=== PATIENT | male | born 1950 | race Caucasian/White ===

== ENCOUNTER → 2016-05-12 | Outpatient (CLI) | payer MEDICARE ==
[~2016-05-12] MED LIST: LISI-519 PO; MELA5TAB15 PO; NAPR220T95 PO; SIMV40TA PO; TAMS0.4C4 PO
[2016-05-12 13:46] LABS: HEMATOCRIT 43.6 % (39.0-51.0); MEAN CELL VOLUME 88.2 FL (80.0-100.0); MEAN CORPUSCULAR HGB CONC 35.1 % (32.0-36.0); PLATELET COUNT 194 TH/MM3 (150-450); RED BLOOD COUNT 4.95 MIL/MM3 (4.50-5.90); RED CELL DISTRIBUTION WIDTH 13.8 % (11.6-17.2); REVIEW FLAG FINAL; WHITE BLOOD COUNT 5.3 TH/MM3 (4.0-11.0)
--- NOTE | 2016-05-13 20:22 | EKG ---
Date Performed: 05/12/2016 Time Performed: 13:39:35 PTAGE: 66 years EKG: Sinus rhythm POSSIBLE LEFT ATRIAL ENLARGEMENT BORDERLINE ECG NO PREVIOUS TRACING DOCTOR: Braulio Dow Interpretating Date/Time 05/13/2016 20:20:46
== END ==
LOC: CPRE 13:14
PROVIDERS: ATTEND Specialist
DX: Z01.810 Encounter for preprocedural cardiovascular examination (principal); Z01.812 Encounter for preprocedural laboratory examination; J32.9 Chronic sinusitis, unspecified; R94.31 Abnormal electrocardiogram [ECG] [EKG]
CPT/HCPCS: 36415; 85027; 93005

== ENCOUNTER → 2016-05-14 | Day surgery (SDC) | payer MEDICARE ==
--- NOTE | 2016-05-13 17:52 | MH ---
cc: BETSY PITTS M.D. DATE OF ADMISSION: 05/14/2016 ADMITTING DIAGNOSIS: HISTORY OF PRESENT ILLNESS: 66-year-old gentleman with chronic sinusitis for nasal obstruction, for nasal sinus surgery. PAST MEDICAL HISTORY Unremarkable. PAST SURGICAL HISTORY Unremarkable. REVIEW OF SYSTEMS, FAMILY HISTORY AND SOCIAL HISTORY Unremarkable. PHYSICAL EXAMINATION Well-appearing patient no acute distress noted. HEENT: Exam reveals septal deviation, turbinate hypertrophy, mucopurulent secretions. Lungs: Clear. Heart: Regular rate and rhythm. Abdomen: Soft, nontender. Extremities: Without clubbing, cyanosis or edema. Neurologic: Alert, oriented, nonfocal neurologic exam. IMPRESSION: Chronic sinusitis and nasal obstruction per nasal sinus surgery. The patient was instructed as to the method of surgery and possible complication, which includes anesthetic complications, cardiac difficulty, pulmonary difficulty, stroke, coma or even . Surgical complications of bleeding, infection, risk of injury to orbit including blindness and diplopia, risk of injury to brain including CSF leak, meningitis, brain abscess or even , decreased sense of smell, septal perforation. The patient appeared to agree, accept and understand the above-mentioned risks and benefits. There were no guarantees or warrantees regarding outcome were given. We will, therefore, proceed with surgery. Betsy Pitts MD [facility]/[place] /5:08 PM /5:42 PM [facility] CLINICPatricia
[~2016-05-14] VITALS: Ht 170.2 cm; Wt 77.5 kg
[~2016-05-14] MED LIST changes: +*RESP: ALBUTEROL 2.5 MG/3 ML NEB (PRN) PERIprocedural Use ONLY NEB ONE; +ACETAMINOPHEN/HYDROcodone 325 MG/7.5 MG TAB PO PRN; +DEXAMETHASONE SOD PHOS 4 MG/ML VIAL ONE; +DO NOT ADM ANY ANTICOAGULANT DRUGS XX PRN; +EPINEPHrine HCL (1:1000) 30 MG/30 ML VIAL ONE; +INSULIN HUMAN REGULAR 1,000 UNITS/10 ML VIAL SQ PRN; +LACTATED RINGER'S 1000 ML IV SCH; +LIDOCAINE 1%/EPINEPHrine 1:100,000 SOLN 20 ML VIAL ONE; +METOPROLOL TARTRATE 25 MG TAB PO PRN; +MIDAZOLAM HCL 2 MG/2 ML VIAL ONE; +MORPHINE SULFATE 4 MG/ML INJ IV PRN; -NAPR220T95 PO; +ONDANSETRON HCL 4 MG/2 ML VIAL IV PUSH PRN; +OXYMETAZOLINE HCL 0.05% 15 ML NASAL SPRAY ONE; +PROPOFOL 200 MG/20 ML AMP IV ONE; +SODIUM CHLORID 0.9% 500 ML IV SCH
[2016-05-14 06:54] VITALS: BP 152/88; PULSE 75; RESP 20; TEMP 98; O2SAT 96
[2016-05-14 14:00] VITALS: BP 147/87; PULSE 68; RESP 18; TEMP 98.1; O2SAT 93
--- NOTE | 2016-05-17 09:55 | MP ---
cc: BETSY PITTS DATE OF SURGERY: 05/14/2016 PREOPERATIVE DIAGNOSIS: Nasal obstruction, chronic sinusitis, turbinate hypertrophy. POSTOPERATIVE DIAGNOSIS: Nasal obstruction, chronic sinusitis, turbinate hypertrophy. PROCEDURE Open septal reconstruction, bilateral endoscopic frontal sinusotomy, bilateral endoscopic anterior posterior ethmoidectomy, bilateral endoscopic maxillary antrostomy with removal of tissue, bilateral inferior turbinate resection, submucous resection. ANESTHESIA: General anesthesia ESTIMATED BLOOD LOSS 200 cc COMPLICATIONS: No complications. OPERATING SURGEON Dr. Pitts. OPERATION: The patient was prepped and draped in the usual fashion. 1% Xylocaine, 100,000 epinephrine injected into the nasal septum, inferior turbinates, middle meatus bilaterally. 1:1000 adrenaline soaked pledgets were placed and then removed. Under endoscopic visualization microdebrider was used on the right side to remove the uncinate process into the frontal sinus dissection recess dissection removing polypoid tissue as well as bone and mucosa to enlarge the frontal sinus recess, anterior posterior ethmoidectomy performed with the microdebrider under endoscopic visualization and the natural antrostomy identified and enlarged. Minimal tissue removed from the maxillary sinus. A Telfa splint was placed in the right middle meatus. In a similar fashion on the opposite side, uncinectomy performed under endoscopic visualization, natural antrostomy identified and enlarged and polypoid tissue removed from it with the microdebrider. Anterior posterior ethmoidectomy performed with microdebrider. The frontal sinus recess dissection as well under endoscopic visualization. Telfa splint placed. Mucoperichondrial incision made left side of the septum. Mucoperichondrial flap elevated. Significant amount of bone and cartilage removed from this incision to improve the nasal airway and reduce the nasal fracture. The mucoperichondrial flap was resutured. Inferior turbinate was coblated bilaterally submucosally sparing the mucosa. Significant improvement in nasal airway noted. Bilateral Nasacort dressing placed. The patient tolerated the procedure well. MD JOSE Spaulding/RUBI /7:57 AM /9:46 AM
== END | disposition home or self-care (01) ==
LOC: HSDC 06:27
PROVIDERS: ATTEND Specialist
DX: J32.9 Chronic sinusitis, unspecified (principal); J34.89 Other specified disorders of nose and nasal sinuses; J34.3 Hypertrophy of nasal turbinates
CPT/HCPCS: 00160; 30130; 30520; 31255; 31267; 31276; 94664; J0171; J1100; J2250; J3010; J7120; J7613

== ENCOUNTER 2016-09-26 11:49 | Emergency (ER) | payer MEDICARE ==
[~2016-09-26] VITALS: Ht 170.2 cm; Wt 75.0 kg
[~2016-09-26 11:49] MED LIST changes: -*RESP: ALBUTEROL 2.5 MG/3 ML NEB (PRN) PERIprocedural Use ONLY NEB ONE; -ACETAMINOPHEN/HYDROcodone 325 MG/7.5 MG TAB PO PRN; -DEXAMETHASONE SOD PHOS 4 MG/ML VIAL ONE; -DO NOT ADM ANY ANTICOAGULANT DRUGS XX PRN; -EPINEPHrine HCL (1:1000) 30 MG/30 ML VIAL ONE; -INSULIN HUMAN REGULAR 1,000 UNITS/10 ML VIAL SQ PRN; -LACTATED RINGER'S 1000 ML IV SCH; -LIDOCAINE 1%/EPINEPHrine 1:100,000 SOLN 20 ML VIAL ONE; -METOPROLOL TARTRATE 25 MG TAB PO PRN; -MIDAZOLAM HCL 2 MG/2 ML VIAL ONE; -MORPHINE SULFATE 4 MG/ML INJ IV PRN; -ONDANSETRON HCL 4 MG/2 ML VIAL IV PUSH PRN; -OXYMETAZOLINE HCL 0.05% 15 ML NASAL SPRAY ONE; -PROPOFOL 200 MG/20 ML AMP IV ONE; -SODIUM CHLORID 0.9% 500 ML IV SCH
[2016-09-26 11:51] VITALS: BP 189/93; PULSE 70; RESP 18; TEMP 98; O2SAT 95
[2016-09-26] MEDS ORDERED: AMLO5TAB2 PO (11:59)
[2016-09-26] MEDS ORDERED: SODIUM CHLOR 0.9% 1000 ML INJ 1,000 ML IV SCH (11:59)
[2016-09-26] MEDS ORDERED: SODIUM CHLORIDE 0.9% FLUSH 10 ML FLUSH IV FLUSH PRN (12:00)
[2016-09-26] MEDS ORDERED: ONDANSETRON HCL 4 MG/2 ML VIAL IVP ONE (12:00)
[2016-09-26] MEDS ORDERED: KETOROLAC TROMETHAMINE 30 MG/ML (IVP) VIAL IVP ONE (12:00)
[2016-09-26] MEDS ORDERED: MORPHINE SULFATE 4 MG/ML INJ IV PUSH ONE ×2 (12:00→13:00)
[2016-09-26 12:02] VITALS: O2SAT 95
--- NOTE | 2016-09-26 12:04 | PD ---
HPI Chief Complaint: Abdominal Pain Time Seen by Provider: 11:56 Travel History International Travel<30 days: No Contact w/Intl Traveler<30days: No Traveled to known affect area: No History of Present Illness HPI The patient is a 66-year-old male who presents emergency department for abdominal pain. The patient states his abdominal pain started approximate 9 AM this morning while he was sitting down. The pain is located left lower quadrant, nonradiating, associated with one episode of nausea and vomiting, sharp, constant, and currently at 9/10. The patient states his last bowel movement was at 8 AM, normal. The patient does state he had a few drinks last night, but denies any history of pancreatitis. The patient denies any history of diverticulitis or nephrolithiasis. He denies any associated dysuria, frequency, urgency, or hematuria. Symptoms are moderate without any alleviating or exacerbating factors. PFSH Past Medical History Arthritis: Yes Cancer: Yes (skin ca ) Cardiovascular Problems: Yes (HTN) High Cholesterol: Yes Diabetes: No Diminished Hearing: No Endocrine: No Gastrointestinal Disorders: Yes (gerd) Genitourinary: Yes (prostate enlargement) Hepatitis: Yes (previous hep c August 2014) Hiatal Hernia: Yes (unsure) Hypertension: Yes Immune Disorder: No Musculoskeletal: Yes (arthritis) Neurologic: No Psychiatric: No Reproductive: No Respiratory: No Thyroid Disease: No Influenza Vaccination: Yes Past Surgical History Abdominal Surgery: Yes (HERNIA REPAIR 10/07) AICD: No Joint Replacement: No Pacemaker: No Tonsillectomy: Yes Other Surgery: Yes Social History Alcohol Use: Yes (2-3 drinks, once per week) Tobacco Use: No (QUIT 06/2008) Substance Use: No Allergies-Medications (Allergen,Severity, Reaction): Coded Allergies: No Known Allergies (Verified , 09/26/16) Reported Meds & Prescriptions Reported Meds & Active Scripts Active Badger (Hydrocodone-Acetaminophen) 5-325 mg Tab 1 Tab PO Q6H PRN Ibuprofen 400 Mg Tab 400 Mg PO Q6H PRN Reported Amlodipine (Amlodipine Besylate) 5 Mg Tab 5 Mg PO DAILY Tamsulosin (Tamsulosin HCl) 0.4 Mg Cap 0.4 Mg PO HS Review of Systems Except as stated in HPI: all other systems reviewed are Neg General / Constitutional: No: Fever Cardiovascular: No: Chest Pain or Discomfort Respiratory: No: Shortness of Breath Gastrointestinal: Positive: Nausea, Vomiting, Abdominal Pain, No: Diarrhea Genitourinary: No: Urgency, Frequency, Dysuria, Hematuria Physical Exam Narrative GENERAL: Awake, alert, pleasant 66-year-old male who appears his stated age and is in no acute respiratory distress. He does appear moderate discomfort. SKIN: Focused skin assessment warm/dry. No stigmata of shingles. HEAD: Atraumatic. Normocephalic. EYES: Pupils equal and round. No scleral icterus. No injection or drainage. ENT: No nasal bleeding or discharge. Mucous membranes pink and moist. NECK: Trachea midline. No JVD. CARDIOVASCULAR: Regular rate and rhythm. No murmur appreciated. RESPIRATORY: No accessory muscle use. Clear to auscultation. Breath sounds equal bilaterally. GASTROINTESTINAL: Abdomen soft, tender to palpation left lower quadrant. Mild guarding, no rebound tenderness. MUSCULOSKELETAL: No obvious deformities. No clubbing. No cyanosis. No edema. NEUROLOGICAL: Awake and alert. No obvious cranial nerve deficits. Motor grossly within normal limits. Normal speech. PSYCHIATRIC: Appropriate mood and affect; insight and judgment normal. Data Data Last Documented VS Vital Signs Date Time Temp Pulse Resp B/P Pulse Ox O2 Delivery O2 Flow Rate FiO2 09/26/16 12:57 71 18 150/80 95 Room Air 09/26/16 11:51 98.0 Orders Complete Blood Count With Diff (09/26/16 11:59) Comprehensive Metabolic Panel (09/26/16 11:59) Lipase (09/26/16 11:59) Lactic Acid (09/26/16 11:59) Urinalysis - C+S If Indicated (09/26/16 11:59) Ct Abd/Pel W/O Iv Contrast (09/26/16 11:59) Iv Access Insert/Monitor (09/26/16 11:59) Ecg Monitoring (09/26/16 11:59) Oximetry (09/26/16 11:59) Morphine Inj (Morphine Inj) (09/26/16 12:00) Ondansetron Inj (Zofran Inj) (09/26/16 12:00) Sodium Chlor 0.9% 1000 Ml Inj (Ns 1000 M (09/26/16 11:59) Sodium Chloride 0.9% Flush (Ns Flush) (09/26/16 12:00) Ketorolac Inj (Toradol Inj) (09/26/16 12:00) Morphine Inj (Morphine Inj) (09/26/16 13:00) Labs Laboratory Tests Test 09/26/16 09/26/16 12:05 13:10 White Blood Count 8.4 TH/MM3 Red Blood Count 4.90 MIL/MM3 Hemoglobin 14.6 GM/DL Hematocrit 43.5 % Mean Corpuscular Volume 88.7 FL Mean Corpuscular Hemoglobin 29.7 PG Mean Corpuscular Hemoglobin 33.5 % Concent Red Cell Distribution Width 13.1 % Platelet Count 209 TH/MM3 Mean Platelet Volume 7.0 FL Neutrophils (%) (Auto) 78.0 % Lymphocytes (%) (Auto) 15.9 % Monocytes (%) (Auto) 3.8 % Eosinophils (%) (Auto) 1.7 % Basophils (%) (Auto) 0.6 % Neutrophils # (Auto) 6.6 TH/MM3 Lymphocytes # (Auto) 1.3 TH/MM3 Monocytes # (Auto) 0.3 TH/MM3 Eosinophils # (Auto) 0.1 TH/MM3 Basophils # (Auto) 0.1 TH/MM3 CBC Comment DIFF FINAL Differential Comment Sodium Level 141 MEQ/L Potassium Level 3.7 MEQ/L Chloride Level 106 MEQ/L Carbon Dioxide Level 24.7 MEQ/L Anion Gap 10 MEQ/L Blood Urea Nitrogen 12 MG/DL Creatinine 1.20 MG/DL Estimat Glomerular Filtration 60 ML/MIN Rate Random Glucose 132 MG/DL Lactic Acid Level 2.2 mmol/L Calcium Level 9.7 MG/DL Total Bilirubin 0.6 MG/DL Aspartate Amino Transf 15 U/L (AST/SGOT) Alanine Aminotransferase 18 U/L (ALT/SGPT) Alkaline Phosphatase 93 U/L Total Protein 7.3 GM/DL Albumin 3.6 GM/DL Lipase 118 U/L Urine Collection Type CLEAN CATCH Urine Color YELLOW Urine Turbidity SLIGHT Urine pH 7.5 Urine Specific [place] 1.014 Urine Protein NEG mg/dL Urine Glucose (UA) NEG mg/dL Urine Ketones TRACE mg/dL Urine Occult Blood LARGE Urine Nitrite NEG Urine Bilirubin NEG Urine Leukocyte Esterase MOD Urine RBC 50-99 /hpf Urine WBC 20-24 /hpf Urine Squamous Epithelial 0-5 /hpf Cells Urine Mucus FEW /lpf Microscopic Urinalysis Comment CULTURE INDICATED Urine Collection Time 13:10 MDM Medical Decision Making Medical Screen Exam Complete: Yes Emergency Medical Condition: Yes Medical Record Reviewed: Yes Interpretation(s) Last Impressions Abdomen/Pelvis CT 09/26/16 1159 Signed Impressions: Service Date/Time: Monday, September 26, 2016 12:23 - CONCLUSION: 1. Acute obstructive uropathy of the left distal ureter secondary to a 3 mm calcified ureterovesical junction calculus resulting in mild ureteropelvicaliectasis on the left. 2. Uncomplicated colonic diverticulosis. 3. Markedly enlarged prostate with central calcifications. 4. Cirrhotic liver. 5. Degenerative changes involving the lumbar spine. Severo Marie MD Laboratory Tests Test 09/26/16 09/26/16 12:05 13:10 White Blood Count 8.4 TH/MM3 Red Blood Count 4.90 MIL/MM3 Hemoglobin 14.6 GM/DL Hematocrit 43.5 % Mean Corpuscular Volume 88.7 FL Mean Corpuscular Hemoglobin 29.7 PG Mean Corpuscular Hemoglobin 33.5 % Concent Red Cell Distribution Width 13.1 % Platelet Count 209 TH/MM3 Mean Platelet Volume 7.0 FL Neutrophils (%) (Auto) 78.0 % Lymphocytes (%) (Auto) 15.9 % Monocytes (%) (Auto) 3.8 % Eosinophils (%) (Auto) 1.7 % Basophils (%) (Auto) 0.6 % Neutrophils # (Auto) 6.6 TH/MM3 Lymphocytes # (Auto) 1.3 TH/MM3 Monocytes # (Auto) 0.3 TH/MM3 Eosinophils # (Auto) 0.1 TH/MM3 Basophils # (Auto) 0.1 TH/MM3 CBC Comment DIFF FINAL Differential Comment Sodium Level 141 MEQ/L Potassium Level 3.7 MEQ/L Chloride Level 106 MEQ/L Carbon Dioxide Level 24.7 MEQ/L Anion Gap 10 MEQ/L Blood Urea Nitrogen 12 MG/DL Creatinine 1.20 MG/DL Estimat Glomerular Filtration 60 ML/MIN Rate Random Glucose 132 MG/DL Lactic Acid Level 2.2 mmol/L Calcium Level 9.7 MG/DL Total Bilirubin 0.6 MG/DL Aspartate Amino Transf 15 U/L (AST/SGOT) Alanine Aminotransferase 18 U/L (ALT/SGPT) Alkaline Phosphatase 93 U/L Total Protein 7.3 GM/DL Albumin 3.6 GM/DL Lipase 118 U/L Urine Collection Type CLEAN CATCH Urine Color YELLOW Urine Turbidity SLIGHT Urine pH 7.5 Urine Specific [place] 1.014 Urine Protein NEG mg/dL Urine Glucose (UA) NEG mg/dL Urine Ketones TRACE mg/dL Urine Occult Blood LARGE Urine Nitrite NEG Urine Bilirubin NEG Urine Leukocyte Esterase MOD Urine RBC 50-99 /hpf Urine WBC 20-24 /hpf Urine Squamous Epithelial 0-5 /hpf Cells Urine Mucus FEW /lpf Microscopic Urinalysis Comment CULTURE INDICATED Urine Collection Time 13:10 Differential Diagnosis Differential diagnosis includes diverticulitis, nephrolithiasis, perforated viscus, pancreatitis, ischemic bowel, dehydration. Narrative Course IV was established, labs are drawn and sent, and the patient was placed on cardiac telemetry monitoring and continuous pulse oximetry monitoring. The patient was administered morphine 4 mg intravenously, Toradol 15 mg intravenously, Zofran 4 mg intravenously, and 1 L of normal saline for his symptoms. Noncontrast CT of the abdomen and pelvis was ordered to evaluate for diverticulitis/nephrolithiasis. The patient's white count is within normal limits, lactic acid was minimally elevated at 2.2. CT of the abdomen and pelvis reveals acute obstructive uropathy of the left distal ureter secondary to a 3 mm calcified ureterovesical junction calculus resulting in mild year ago pelvicaliectasis on the left. The patient returned from CT and complained of continuing left flank pain, therefore, was redosed with morphine. The patient' s UA reveals RBCs and WBCs. Therefore, the patient will be placed on Cipro. The patient was administered Cipro 400 mg intravenously in the emergency department. Diagnosis Primary Impression: Nephrolithiasis Patient Instructions: General Instructions Additional Instructions: Medications as directed. Please provide the patient a copy of his CT results and lab results at discharge. Follow-up with urology. Strain urine. Med/Other Pt SpecificInfo: Prescription(s) given Scripts Ciprofloxacin 500 Mg [id number] Mg PO BID 7 Days Ref 0 Prov:Alex Rodriguez MD 09/26/16 Hydrocodone-Acetaminophen (Badger)5-325 mg Tab1 Tab PO Q6H PRN (PAIN) #20 TAB Ref 0 Prov:Alex Rodriguez MD 09/26/16 Ibuprofen 400 Mg [id number] Mg PO Q6H PRN (PAIN SCALE 1 TO 10) #20 TAB Ref 0 Prov:Alex Rodriguez MD 09/26/16 Disposition: 01 DISCHARGE HOME Condition: Stable Alex Rodriguez MD Sep 26, 2016 12:04
[2016-09-26 12:14] LABS: AUTOMATED NEUTROPHIL # 6.6 TH/MM3 (1.8-7.7); BASOPHIL # 0.1 TH/MM3 (0-0.2); BASOPHIL % 0.6 % (0.0-2.0); EOSINOPHIL # 0.1 TH/MM3 (0-0.4); EOSINOPHIL % 1.7 % (0.0-4.0); HEMATOCRIT 43.5 % (39.0-51.0); HEMO FLAGS DIFF FINAL; LYMPH % 15.9 % (9.0-44.0); LYMPHOCYTE # 1.3 TH/MM3 (1.0-4.8); MEAN CELL VOLUME 88.7 FL (80.0-100.0); MEAN CORPUSCULAR HEMOGLOBIN 29.7 PG (27.0-34.0); MEAN CORPUSCULAR HGB CONC 33.5 % (32.0-36.0); MONO % 3.8 % (0.0-8.0); PLATELET COUNT 209 TH/MM3 (150-450); RED CELL DISTRIBUTION WIDTH 13.1 % (11.6-17.2); WHITE BLOOD COUNT 8.4 TH/MM3 (4.0-11.0)
[2016-09-26 12:16] VITALS: BP 175/89; PULSE 79; RESP 18; O2SAT 96
[2016-09-26 12:23] LABS: CHLORIDE 106 MEQ/L (98-107); POTASSIUM 3.7 MEQ/L (3.5-5.1); SODIUM (NA) 141 MEQ/L (136-145)
[2016-09-26 12:27] LABS: ANION GAP 10 MEQ/L (5-15); BICARBONATE 24.7 MEQ/L (21.0-32.0); BLOOD UREA NITROGEN 12 MG/DL (7-18)
[2016-09-26 12:30] LABS: ALT (GPT) 18 U/L (12-78); AST (GOT) 15 U/L (15-37); GLOMERULAR FILTRATION RATE 60 ML/MIN (>89)
[2016-09-26 12:31] LABS: TOTAL BILIRUBIN ADULT 0.6 MG/DL (0.2-1.0)
[2016-09-26 12:32] LABS: ALKALINE PHOSPHATASE 93 U/L (45-117)
[2016-09-26 12:57] VITALS: BP 150/80; PULSE 71; RESP 18; O2SAT 95
--- NOTE | 2016-09-26 12:58 | RADRPT ---
EXAM DATE/TIME: 09/26/2016 12:23 [place] COMPARISON: No previous studies available for comparison. INDICATIONS : Sudden onset Left Upper Quadrant pain. ORAL CONTRAST: No oral contrast ingested. RADIATION DOSE: 15.64 CTDIvol (mGy) MEDICAL HISTORY : Gastroesophageal reflux disease. Hypertension. Skin cancer SURGICAL HISTORY : Tonsillectomy. Hernia ENCOUNTER: Initial ACUITY: 1 day PAIN SCALE: 10/10 LOCATION: Left upper quadrant TECHNIQUE: Volumetric scanning of the abdomen and pelvis was performed. Using automated exposure control and ad justment of the mA and/or kV according to patient size, radiation dose was kept as low as reasonably achievable to obtain optimal diagnostic quality images. DICOM format image data is available electro nically for review and comparison. FINDINGS: There is acute obstructive uropathy of the left distal ureter secondary to a 3 mm calcified ureteral calculus at the left ureterovesical junction resulting in mild ureteropelvicaliectasis on the left. Uncomplicated sigmoid diverticulosis is noted. There is no acute diverticulitis. The appendix is no rmal. There is a nodular contour of the liver indicating cirrhosis. Evaluation of the solid organs of the abdomen is limited by the lack of intravenous contrast. The gallbladder is unremarkable. There is m ild ectasia of the distal abdominal aorta measuring 2.4 cm AP x 2.2 cm transverse. The prostate glan d is markedly enlarged and contains central calcifications. Scattered atelectasis and/or fibrotic sc arring is noted within the posterior lung bases. Degenerative changes are noted within the lumbar sp ine. CONCLUSION: 1. Acute obstructive uropathy of the left distal ureter secondary to a 3 mm calcified ureterovesical junction calculus resulting in mild ureteropelvicaliectasis on the left. 2. Uncomplicated colonic diverticulosis. 3. Markedly enlarged prostate with central calcifications. 4. Cirrhotic liver. 5. Degenerative changes involving the lumbar spine. Severo Marie MD on September 26, 2016 at 12:42 Board Certified Radiologist. This report was verified electronically.
[2016-09-26] MEDS ORDERED: IBUP400T20 PO (13:05)
[2016-09-26] MEDS ORDERED: NORC5TAB PO (13:05)
[2016-09-26 13:23] LABS: BLOOD, URINE LARGE (NEG); GLUCOSE,URINE NEG (NEG); KETONE, URINE TRACE mg/dL (NEG); NITRITE,URINE NEG (NEG); PH, URINE 7.5 (5.0-8.5)
[2016-09-26 13:27] LABS: METHOD OF COLLECTION CLEAN CATCH; MUCUS URINE FEW /lpf (OCC); SQUAMOUS EPITHELIAL CELL URINE 0-5 /hpf (0-5); URINE COLOR YELLOW (YELLW/STRAW)
[2016-09-26 13:28] LABS: COMMENT (UR) CULTURE INDICATED; CULTURE IF INDICATED CULTURE INDICATED
[2016-09-26] MEDS ORDERED: CIPROFLOXACIN 400 MG PREMIX 200 ML IV ONE (13:30)
[2016-09-26] MEDS ORDERED: CIPR500T2 PO (13:30)
[2016-09-26] MEDS ORDERED: HYDROmorphone HCL PF 1 MG/ML VIAL IV PUSH ONE (13:45)
[2016-09-26 13:57] VITALS: BP 150/79; PULSE 82; RESP 18; O2SAT 92
[2016-09-26 15:31] VITALS: BP 147/87
== END 2016-09-26 15:33 | disposition home or self-care (01) ==
LOC: PHED 11:49
DX: N20.0 Calculus of kidney (principal); I10 Essential (primary) hypertension; E78.00 Pure hypercholesterolemia, unspecified; Z87.39 Personal history of other diseases of the musculoskeletal system and connective tissue; Z85.828 Personal history of other malignant neoplasm of skin; Z87.19 Personal history of other diseases of the digestive system; Z87.448 Personal history of other diseases of urinary system
CPT/HCPCS: 74176; 80053; 81001; 83605; 83690; 85025; 87086; 96361; 96374; 96375; 96376; 99285; J0744; J1170; J1885; J2270; J2405; J7030

== ENCOUNTER 2017-03-08 06:51 | Emergency (ER) | payer MEDICARE ==
[~2017-03-08] VITALS: Ht 170.2 cm; Wt 75.0 kg
[~2017-03-08 06:51] MED LIST changes: +AMLO5TAB2 PO; +CIPR500T2 PO; +IBUP1TAB5 PO; -LISI-519 PO; -MELA5TAB15 PO; +NORC5TAB PO; -SIMV40TA PO
[2017-03-08 06:56] VITALS: BP 149/91; PULSE 93; RESP 16; TEMP 98.3; O2SAT 97
--- NOTE | 2017-03-08 07:23 | PD ---
HPI . Cold symptoms Chief Complaint: Cold / Flu Symptoms Time Seen by Provider: 07:16 Travel History International Travel<30 days: No Contact w/Intl Traveler<30days: No Traveled to known affect area: No History of Present Illness HPI This patient presents with a chief complaint of cold symptoms. Onset was 2 days ago. He is complaining with cough, myalgias, arthralgias, sore throat, nausea and headache. He has taken nothing for his symptoms. Symptoms have been continuous. He rates his pain 10/10. PFSH Past Medical History Arthritis: Yes Cancer: Yes (skin ca ) Cardiovascular Problems: Yes (HTN) High Cholesterol: Yes Diabetes: No Diminished Hearing: No Endocrine: No Gastrointestinal Disorders: Yes (gerd) Genitourinary: Yes (prostate enlargement) Hepatitis: Yes (previous hep c August 2014) Hiatal Hernia: Yes (unsure) Hypertension: Yes Immune Disorder: No Musculoskeletal: Yes (arthritis) Neurologic: No Psychiatric: No Reproductive: No Respiratory: No Immunizations Current: Yes Thyroid Disease: No Influenza Vaccination: Yes Past Surgical History Abdominal Surgery: Yes (HERNIA REPAIR 10/07) AICD: No Joint Replacement: No Pacemaker: No Tonsillectomy: Yes Other Surgery: Yes (SINUS SURGERY 04/2016) Social History Alcohol Use: Yes (2-3 drinks, once per week) Tobacco Use: No (QUIT 06/2008) Substance Use: No Allergies-Medications (Allergen,Severity, Reaction): Coded Allergies: No Known Allergies (Verified Adverse Reaction, Unknown, 03/08/17) Reported Meds & Prescriptions Reported Meds & Active Scripts Active Reported Amlodipine (Amlodipine Besylate) 5 Mg Tab 5 Mg PO DAILY Review of Systems Except as stated in HPI: all other systems reviewed are Neg General / Constitutional: No: Fever, Chills HENT: Positive: Headaches, Sore Throat Respiratory: Positive: Cough Gastrointestinal: Positive: Nausea Musculoskeletal: Positive: Myalgias, Arthralgias Physical Exam Narrative GENERAL: Awake and alert and in no acute distress. SKIN: Warm and dry. HEAD: Normocephalic/atraumatic. EYES: Pupils are equal. Extraocular movements are intact. No conjunctival injection or discharge. ENT: Mild edema of the nasal turbinates. Oropharynx has no erythema, exudate or tonsillar enlargement. NECK: Normal range of motion. Supple. No cervical lymphadenopathy. CARDIOVASCULAR: Regular rate and rhythm. Heart sounds are normal. RESPIRATORY: Nonlabored respirations. Lungs are clear with full movement throughout. MUSCULOSKELETAL: Atraumatic. NEUROLOGICAL: Nonfocal. PSYCHIATRIC: Appropriate mood and affect. Data Data Last Documented VS Vital Signs Date Time Temp Pulse Resp B/P (MAP) Pulse Ox O2 Delivery O2 Flow Rate FiO2 03/08/17 06:56 98.3 93 16 149/91 (110) 97 Orders Orders Ed Discharge Order (03/08/17 07:17) [facility] Medical Decision Making Medical Screen Exam Complete: Yes Emergency Medical Condition: Yes Differential Diagnosis Differential diagnosis includes but is not limited to influenza, upper respiratory infection, bronchitis, pneumonia Narrative Course This patient presents with a 2 day history of cold symptoms. He has not tried anything at home prior to presentation to us. He will be given a list of things that he can do at home for symptomatic relief. Diagnosis Primary Impression: Upper respiratory infection Qualified Codes: J06.9 - Acute upper respiratory infection, unspecified; B97.89 - Other viral agents as the cause of diseases classified elsewhere Patient Instructions: General Instructions, Upper Respiratory Infection (ED) Departure Forms: Tests/Procedures Additional Instructions: I recommend the use of a Neti Pot. You may use a nasal spray such as Afrin for up to 3 days as needed for nasal congestion. You may take an [id number] antihistamine such as Zyrtec, Toya or Claritin as needed for runny secretions. You may take pseudoephedrine as needed for congestion. You will need to sign for this at the pharmacy. You may take plain Mucinex, 1200 mg twice a day as needed for thick secretions. You may take a cough syrup such as Delsym as needed for cough. Motrin as needed for fever and body aches. Throat lozenges/sprays as needed for sore throat. Warm salt water gargles for sore throat. Hot tea with lemon and honey also helps soothe a sore throat. Disposition: 01 DISCHARGE HOME Condition: Stable Lissy Arnett MD Mar 08, 2017 07:23
== END 2017-03-08 07:43 | disposition home or self-care (01) ==
LOC: PHED 06:51
DX: J06.9 Acute upper respiratory infection, unspecified (principal); I10 Essential (primary) hypertension; E78.00 Pure hypercholesterolemia, unspecified; B19.20 Unspecified viral hepatitis C without hepatic coma; K21.9 Gastro-esophageal reflux disease without esophagitis; N40.0 Benign prostatic hyperplasia without lower urinary tract symptoms; Z87.891 Personal history of nicotine dependence
CPT/HCPCS: 99282